=== PATIENT | female | born 1945 | race Caucasian/White ===

== ENCOUNTER 2019-05-12 06:04 | Inpatient (IN) ==
[2019-05-12] MEDS ORDERED: *HR* Propofol 200 MG/20 ML VIAL IVP ONE ×2 (06:22)
[2019-05-12] MEDS ORDERED: *HR* FentaNYL (PF) 100 MCG/2 ML VIAL ONE ×2 (06:22→09:41)
[2019-05-12] MEDS ORDERED: *HR* Remifentanil 1 MG VIAL IVP ONE (06:22)
[2019-05-12] MEDS ORDERED: Ringers Solution, Lactated 1,000 ML IVC SCH ×2 (06:30→07:15)
[2019-05-12] MEDS ORDERED: NiCARdipine 2.5 MG/10 ML Syringe IVPB ONE (06:32)
--- NOTE | 2019-05-12 07:00 | Anesthesia Evaluation PreOp ---
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 Has a complicated basal rate program and patient is unable to reprogram it so will have patient suspend infusion and we will resume infusion post surgery.) Anesthesia History: No Prior Anesthetic Complications, Past Anesthesia (partial colectomy, appy, trigger finger) Alcohol Use: none Drug use: none Medications and Allergies Allergy/AdvReac Type Severity Reaction Status Date / Time cephalexin Allergy Gastrointestinal Verified 05/12/19 07:00 Upset - Meds/Allergy Pre-op Review Medications Reviewed: Yes Allergies Reviewed: Yes Beta Blockers on Current Med List: No Anesthesia Results - Labs Selected Entries 05/12/19 06:45 05/12/19 06:48 Temperature 98.2 F 98.2 F Pulse Rate 80 81 Respiratory Rate 18 18 Blood Pressure 143/57 143/57 O2 Sat by Pulse Oximetry 95 95 Laboratory Tests 05/06/19 05/06/19 06:52 06:52 Hgb 13.9 Hct 43.3 Plt Count 267 Sodium 142 Potassium 3.9 BUN 15 Creatinine 0.64 - Imaging Additional studies: stress test: Impression: Pharmacologic stress ECG is negative for ischemia at level of heart rate achieved. Gated EF > 70%. Perfusion imaging was negative for ischemia or infarct. Anesthesia Exam Selected Entries 05/12/19 06:48 Temperature 98.2 F Pulse Rate 81 Respiratory Rate 18 Blood Pressure 143/57 O2 Sat by Pulse Oximetry 95 Weight: 59kg NPO (# of Hours): 8 - HEENT Pupil (Motor): EOMI Mallampati: III Teeth: Normal Oral Opening: Less than or equal to 3 - HUMAN DEVELOPMENT PROFESSOR LOC: Oriented HUMAN DEVELOPMENT PROFESSOR Motor: Normal RUE, Normal LUE, Normal RLE, Normal LLE, Normal Face HUMAN DEVELOPMENT PROFESSOR Sensory: Normal: RUE, LUE, RLE, LLE, Face - Cardiac Rhythm: Regular Murmur: None - Pulmonary Breath Sounds: bilateral Clear Respiratory Effort: Symmetrical Anesthesia Assess/Plan ASA Score: 3 Level of consciousness: Cooperative, Oriented Anesthetic Plan: General Monitoring Plan: Standard Monitors, A-Line Recovery Plan: PACU (agrees to GA, a-line and blood if needed.)
[2019-05-12] MEDS ORDERED: *HR* OxyCODONE Immed Rel 5 MG TABLET PO PRN ×2 (07:03→11:31)
[2019-05-12] MEDS ORDERED: traMADol 50 MG TABLET PO PRN (07:03)
[2019-05-12] MEDS ORDERED: *HR* HYDROmorphone (PF) 1 MG/ML SYRINGE IVP PRN (07:03)
[2019-05-12] MEDS ORDERED: Bupivacaine-MPF 0.25% 10 ML VIAL ONE (07:24)
[2019-05-12] MEDS ORDERED: Protamine Sulfate 50 MG/5 ML VIAL IVP ONE (07:24)
[2019-05-12] MEDS ORDERED: Heparin 1,000 UNITS/500 mL 500 ML ONE (07:25)
[2019-05-12] MEDS ORDERED: Calcium Gluconate 1,000 MG/10 ML VIAL ONE (07:30)
--- NOTE | 2019-05-12 07:35 | History & Physical Report ---
Date of Encounter: 05/12/19 Time of Encounter: 07:25 24 Hour HP Update - Instructions Instructions: If the History and Physical is less than 30 days old and was completed prior to A.M. admission and or procedure and has NOT been updated on calendar day of procedure please complete this update prior to performing procedure. - Update Patient reports changes in Medical Condition: No Changes in examination, assessment, or condition: No Changes in Medication: No Preop tests/diagnostics Reviewed: Yes Surgery Remains Indicated: Yes Consent for Planned Operative Procedure(s) Verified: Yes - Pre-Operative Checklist Preoperative Checklist Indicated: Yes Prophylactic Antibiotic Ordered: Yes (vancomycin due to risk of MRSA) Home Medications Include Beta Ja: No Beta Ja Taken Today (Day of Surgery): No Beta Ja Taken Yesterday (Day Prior to Surgery): No Is VTE Prophylaxis Indicated?: Yes
[2019-05-12] MEDS ORDERED: Lidocaine -MPF 2% 2 ML VIAL ONE (07:41)
[2019-05-12] MEDS ORDERED: *HR* Heparin 5,000 UNIT/ML VIAL ONE ×2 (07:41→07:42)
[2019-05-12] MEDS ORDERED: Clindamycin 900 MG/50 ML 900 MG/50 ML IV.SOLN IVPB ONE ×2 (07:45→08:16)
[2019-05-12] MEDS ORDERED: Vancomycin 1,000 MG, Sodium Chloride IRRigation 1,000 ML IR ONE (07:45)
[2019-05-12] MEDS ORDERED: *HR* Midazolam HCl 2 MG/2 ML VIAL ONE (07:57)
[2019-05-12] MEDS ORDERED: EPHEDrine 50 MG/ML VIAL ONE (09:10)
[2019-05-12] MEDS ORDERED: *HR* Labetalol 20 MG/4 ML SYRINGE IVP ONE (09:35)
--- NOTE | 2019-05-12 10:39 | Operative Note ---
Date of procedure: 05/12/19 Pre-op diagnosis: 80-99% Left internal carotid artery stenosis Post-op diagnosis: same Procedure: Left carotid endarterectomy with hemashield patch angioplasty. Complications: None Anesthesia: GETA Surgeon: Maxim Cintron Was there an billing assistant present: No Estimated blood loss (cc): 50 Specimen: Left carotid plaque Condition: stable Disposition: PACU Procedure in Detail: Indications: The patient is a 73-year-old male with history of hypertension who was found have a greater than 90% left internal carotid artery stenosis. Endarterectomy was recommended to reduce her risk of cerebrovascular accident. Procedure: The patient was identified in the preoperative area. The risks, benefits, and alternatives of the procedure were discussed and all questions were answered. She was then taken to the operating room and placed in supine position on the operating table. After the induction of general endotracheal anesthesia, she was cleaned and draped in normal sterile fashion. A longitudinal incision was made anterior to the left sternocleidomastoid muscle. Hemostasis was obtained via electrocautery. Through a process of blunt, sharp, and electrocautery dissection, the platysma was traversed and the jugular vein was identified. The facial vein was dissected, clamped, divided and ligated with a 2-0 silk suture ligature. The jugular vein was retracted to expose the carotid bifurcation. The patient received 3000 units of heparin intravenously at this time. Proximal dissection of the common and external carotid arteries were performed circumferentially. Dissection of the internal carotid was performed circumferentially. Vessels loops were passed around the internal and external carotid and an umbilical tape was passed from the common carotid artery. The patient received an additional 2000 units of heparin intravenously. After waiting adequate time for the heparin to circulate, the vessels were occluded and a longitudinal arteriotomy was made into the common carotid artery and extended into the internal carotid beyond the plaque. The plaque was long, extended distally and was heavily calcified. Vigorous pulsatile retrograde flow was noted from the internal carotid artery upon release of the vessel loop. Due to the rapid and pulsatile retrograde flow through the internal carotid artery, a shunt was not placed. A dental [place] was then used to perform a standard endarterectomy. Proximal and distal endpoints were inspected and elevated flaps were present. A Hemashield patch was cut to fit the defect and sutured in place with running 6-0 Prolene. Prior to completing the closure, each vessel was flushed and then reoccluded. Heparinized saline was infused into the lumen. The patch was completed. Flow was restored in the external carotid artery, followed the common carotid artery, lastly the internal carotid artery was opened. A low resistance arterialized signal was present within the internal carotid artery beyond the patch. Thrombin and Gelfoam were used to aid in hemostasis. Meticulous hemostasis was obtained throughout the wound with electrocautery. Platelet rich and platelet poor plasma were infused into the wounds. The sternocleidomastoid was reapproximated with interrupted 3-0 Vicryl. Platelet rich and platelet poor plasma were infused into the wound. A TLS drain was brought through a separate stab incision and sutured in place with 0 silk suture. The platysma was reapproximated with running 3-0 Vicryl. Local anesthetic was infused in the skin. A 3-0 Monocryl was used to reapproximate the skin. A sterile dressing was applied. The patient was extubated, taken to the recovery room in stable condition.
--- NOTE | 2019-05-12 11:12 | Anesthesia Evaluation Post Op ---
Date of Encounter: 05/12/19 Time of Encounter: 11:11 - Vital Signs Vital Signs: Selected Entries 05/12/19 10:36 05/12/19 10:56 Temperature 97.3 F L Pulse Rate 74 Respiratory Rate 10 Blood Pressure 168/63 O2 Sat by Pulse Oximetry 99 - Lungs Lungs: Clear Ascult./Percussion - Airway Airway: Non-obstructed - Cardiovascular Regular Rate - Mental Status Mental Status: Alert & Oriented, Answers Appropriately - Pain Pain Scale: 0 - Nausea Vomiting Nausea Vomiting: Not Present - Hydration Hydration: Ice chips, Has not voided - Discharge PostOp Status: Transfer Patient to floor
[2019-05-12] MEDS ORDERED: Loratadine 10 MG TABLET PO PRN (11:31)
[2019-05-12] MEDS ORDERED: Ondansetron 4 MG/2 ML VIAL IVP PRN (11:31)
[2019-05-12] MEDS ORDERED: MOM Conc 10 ML UD.LIQ PO SCH (11:31)
[2019-05-12] MEDS ORDERED: Famotidine 20 MG TABLET PO PRN (11:31)
[2019-05-12] MEDS ORDERED: *HR* HYDROcodone/Acet 5/325 mg TABLET PO PRN (11:31)
[2019-05-12] MEDS ORDERED: *HR* Labetalol 20 MG/4 ML SYRINGE IVP PRN (11:31)
[2019-05-12] MEDS ORDERED: 0.9 % Sodium Chloride 1,000 ML IVC SCH (11:31)
[2019-05-12] MEDS ORDERED: Acetaminophen 325 MG TABLET PO PRN (11:31)
[2019-05-12] MEDS ORDERED: Naloxone 0.4 MG/ML INJ IVP PRN (11:31)
[2019-05-12] MEDS: *HR* Metoprolol 5 MG/5 ML VIAL IVP SCH ×3 (11:59→23:54)
[2019-05-12] MEDS ORDERED: *HR* Dextrose 50 % in Water (Syg) 50 ML SYRINGE IVP PRN (12:03)
[2019-05-12] MEDS ORDERED: Dextrose Gel 15 GM/37.5 ML TUBE PO PRN ×2 (12:03)
[2019-05-12] MEDS ORDERED: D5% in Water 1,000 ML IVC PRN (12:03)
[2019-05-12] MEDS ORDERED: Neostigmine Methylsulfate 3 MG/3 ML SYRINGE ONE (14:08)
[2019-05-12] MEDS ORDERED: *HR* HYDROMORPHONE 2 MG/ML VIAL ONE (14:16)
[2019-05-12] MEDS ORDERED: Insulin LISPRO 300 UNITS/3 ML VIAL SQ SCH ×2 (16:30→21:00)
[2019-05-13] MEDS: *HR* Metoprolol 5 MG/5 ML VIAL IVP SCH (05:58)
[2019-05-13] MEDS ORDERED: *HR* Heparin 5,000 UNIT/ML VIAL SQ SCH ×2 (06:00)
[2019-05-13] MEDS ORDERED: Insulin LISPRO 300 UNITS/3 ML VIAL SQ SCH ×2 (06:39→06:40)
--- NOTE | 2019-05-13 06:39 | Discharge Summary ---
Orders not resulted at time of discharge: Pending orders 05/12/19 10:23 Surgical Pathology [PTH] Routine Date of Encounter: 05/13/19 Time of Encounter: 07:50 - Discharge Diagnosis (1) Carotid stenosis, bilateral Priority: Primary Status: Chronic Comments: The patient is postoperative day #1 after a left carotid artery. Her incision is healing well. She has no hematoma. She has no neurologic deficits. She is tolerating a diet. She will be discharged today. (2) Essential hypertension Priority: Secondary Status: Chronic Comments: She was counseled regarding atherosclerotic risk factor reduction. (3) Diabetes mellitus type 1 Priority: Secondary Status: Chronic Comments: The patient was treated with subcutaneous insulin while hospitalized. She takes an insulin pump at home. She was informed that her hemoglobin A1c remains elevated and that she should follow-up with her primary care physician regarding her insulin regimen. Qualifiers: Diabetes mellitus complication status: with circulatory complication Diabetes mellitus complication detail: with other circulatory complications Qualified Code(s): E10.59 - Type 1 diabetes mellitus with other circulatory complications (4) Mixed hyperlipidemia Priority: Secondary Status: Chronic - Hospital Course Hospital course: Ms. Miller is a 73 year old female with a history of hypertension and diabetes. She is found have a greater than 90% left internal carotid artery stenosis by CT angiogram. The patient underwent a left carotid endarterectomy and tolerated the procedure well. On postoperative day #1 she was alert without focal deficits. Her incision was healing and her pain was well-controlled. She was tolerating a diet. She was discharged home in stable condition on postoperative day #1 without complications. - Time Spent with Patient Total time spent providing and/or coordinating discharge services: - Discharge Medications Prescriptions: New HYDROcodone/Acet 5/325 mg [[place] 5-325 mg] 1 tab PO Q6HR PRN 4 Days #16 tablet PRN Reason: POSTOPERATIVE PAIN Continued Vitamin A 1 cap PO DAILY Cholecalciferol (Vitamin D3) [Vitamin D3] 1,000 unit PO DAILY Ascorbic Acid [Vitamin C] 500 mg PO DAILY Docusate Sodium [Stool Softener] 100 mg PO DAILY Pravastatin Sodium [Pravachol] 40 mg PO QWEEK Polyvinyl Alcohol [Artificial Tears] 15 ml OP DAILY Esomeprazole Magnesium [Nexium] 20 mg PO DAILY PRN PRN Reason: gerd Magnesium Hydroxide [Milk of Magnesia] 400 mg PO Q1W Levothyroxine Sodium [Levoxyl] 75 mcg PO DAILY Fexofenadine HCl 60 mg PO DAILY PRN PRN Reason: allergies Cyanocobalamin (B-12) [Vitamin B12] 500 mcg PO DAILY Calcium Carb/Vitamin D3/Vit K1 [Calcium + D Soft Chewable Tab] 500 mg PO 3XW Ramipril [Altace] 10 mg PO DAILY Aspirin [Adult Aspirin] 81 mg PO DAILY raNITIdine HCl [Zantac] 150 mg PO DAILY PRN PRN Reason: GERD No Action BuPROPion XL (24 HR) [Wellbutrin XL] 150 mg PO DAILY Home Medications: Ascorbic Acid [Vitamin C] 500 mg PO DAILY 05/12/19 [History] Aspirin [Adult Aspirin] 81 mg PO DAILY 05/12/19 [History] Calcium Carb/Vitamin D3/Vit K1 [Calcium + D Soft Chewable Tab] 500 mg PO 3XW 05/12/19 [History] Cholecalciferol (Vitamin D3) [Vitamin D3] 1,000 unit PO DAILY 05/12/19 [History] Cyanocobalamin (B-12) [Vitamin B12] 500 mcg PO DAILY 05/12/19 [History] Docusate Sodium [Stool Softener] 100 mg PO DAILY 05/12/19 [History] Esomeprazole Magnesium [Nexium] 20 mg PO DAILY PRN 05/12/19 [History] Fexofenadine HCl 60 mg PO DAILY PRN 05/12/19 [History] Levothyroxine Sodium [Levoxyl] 75 mcg PO DAILY 05/12/19 [History] Magnesium Hydroxide [Milk of Magnesia] 400 mg PO Q1W 05/12/19 [History] Polyvinyl Alcohol [Artificial Tears] 15 ml OP DAILY 05/12/19 [History] Pravastatin Sodium [Pravachol] 40 mg PO QWEEK 05/12/19 [History] Ramipril [Altace] 10 mg PO DAILY 05/12/19 [History] Vitamin A 1 cap PO DAILY 05/12/19 [History] raNITIdine HCl [Zantac] 150 mg PO DAILY PRN 05/12/19 [History] BuPROPion XL (24 HR) [Wellbutrin XL] 150 mg PO DAILY 05/13/19 [History] HYDROcodone/Acet 5/325 mg [[place] 5-325 mg] 1 tab PO Q6HR PRN 4 Days #16 tablet 05/13/19 [Rx] Allergies/Adverse Reactions: Allergy/AdvReac Type Severity Reaction Status Date / Time cephalexin Allergy Gastrointestinal Verified 05/12/19 07:00 Upset meclizine Allergy nausea and Verified 05/12/19 08:10 vomiting [id number] Reductase Allergy myalgia Verified 05/12/19 08:10 Inhibitor [Statins] cefdinir AdvReac yeast Verified 05/12/19 08:10 infection Cyclobenzaprine AdvReac nausea and Verified 05/12/19 08:10 [From Flexeril] vomiting Date of admission: 05/12/19 11:35 Primary care physician: Kamar Ching Procedure(s) Performed: Left carotid endarterectomy Discharging clinician: Maxim Cintron Anticipated date of discharge: 05/13/19 Exam Vital Signs, Last 4 Hours Temp Pulse Resp BP Pulse Ox 05/13/19 04:50 67 05/13/19 03:39 98.3 F 73 16 130/46 94 - Patient Status Disposition: Home, Self-Care Condition: Good Functional capacity at discharge: independent ambulation Overall status at discharge: patient is back to baseline - Discharge Instructions Instructions: Carotid Endarterectomy (DC) Follow Up With: Kamar Ching DO [Primary Care Provider] - 05/24/19 9:20 am Maxim Cintron MD [Partnered Physician] - 06/07/19 2:30 pm Additional Instructions: May remove bandage and shower on 05/14/2019. Wash wound with soap and water only. No swimming until 06/13/2019. No Driving for [address] Cintron at [phone] with questions or concerns.
[2019-05-13 07:04] VITALS: BP 131/41
[2019-05-13] MEDS ORDERED: Ascorbic Acid 500 MG TABLET PO SCH (09:00)
[2019-05-13] MEDS ORDERED: Artificial Tears SOLN 15 ML BOTTLE OP SCH (09:00)
[2019-05-13] MEDS ORDERED: Cyanocobalamin (B-12) 1,000 MCG TABLET PO SCH (09:00)
[2019-05-13] MEDS ORDERED: Aspirin Enteric Coated 81 MG Tablet PO SCH (09:00)
[2019-05-13] MEDS ORDERED: Cholecalciferol (D-3) 1,000 UNIT (25MCG) TABLET PO SCH (09:00)
[2019-05-13] MEDS ORDERED: Lisinopril 20 MG TABLET PO SCH (09:00)
[2019-05-13] MEDS ORDERED: VITAMIN A 8000 UNIT PO SCH (09:00)
== END 2019-05-13 09:23 | disposition home or self-care (01) | DRG 254 ==
LOC: SAMDAY 06:04 → 2NNU 11:35
PROVIDERS: ADMIT Surgery; ATTEND Surgery